=== PATIENT | female | born 1940 | race Caucasian/White ===

== ENCOUNTER 2016-05-09 12:20 | Inpatient (IN) ==
[2016-05-09] MEDS ORDERED: *HR* OxyCODONE Immed Rel 5 MG TABLET PO PRN ×2 (13:02→13:31)
[2016-05-09] MEDS ORDERED: Bisacodyl 10 MG RECTAL SUPPOSITORY RC PRN (13:02)
--- NOTE | 2016-05-09 13:16 | Pallative History & Physical ---
Date of Encounter: 05/09/16 Time of Encounter: 13:12 Assessment and Plan (1) Pain Current visit: Yes Status: Acute Doing better with current medications, however he is still uncontrolled. We will continue the MS Contin 15 mg twice a day oxycodone available 5 mg every couple of hours when necessary. The pain after the ambulance ride will give a 1 time 10 mg dose of oxycodone now. A need to increase oxycodone to 10 mg every 2 hours when necessary. Consider increasing MS Contin based on the use of the oxycodone. (2) Constipation Current visit: Yes Status: Acute Last bowel movement was on Sunday maul proximally 4 days ago and this was after a gentle disimpaction. Aching her MiraLAX correctly at home will schedule MiraLAX, we will schedule sennosides with Colace, Dulcolax available as needed. And consider Relistor tomorrow. Qualifiers: Constipation type: drug induced constipation Qualified Code(s): K59.03 - Drug induced constipation (3) Goals of care, counseling/discussion Current visit: Yes Status: Acute She is in for hospice respite care. The going home with hospice or malaise. (4) Bladder cancer metastasized to bone Current visit: Yes Status: Acute This is her hospice diagnosis. We will continue to watch or pain issues. Internal Medicine - H&P: HPI Admitted From: Direct Admit Plans for Post Hospital Care: Hospice - Home (The patient is here for respite care a history of bladder cancer with metastases to the bone well as the lung. She also has a secondary cancer of breast cancer unknown at this time if the metastases are from breast cancer or the bladder cancer. She has had trouble with urinary tract infections on again off again for the last 4 years. And have a notable hematuria approximately a year ago and was diagnosed definitively in December of last year with her cancer with metastases to the bones. During the) History of present illness: Ms. Obrien is a 76 year old female Who presents for respite care 5 days under [facility]. Patient has a diagnosis of bladder cancer with metastases to the bone and possible metastases to the lung or in the workup of the bladder cancer was also found that she had primary breast cancer as well. She did receive radiation therapy for the metastases to the bone but no other therapy was recommended as the patient was already stage IV. Opted for hospice approximately a week ago. He is coming in for respite care at this time. Patient has been having trouble with constipation and had to be disimpacted last Sunday but has not been taking her MiraLAX on a regular basis. She tells me that however when she does take the MiraLAX it is helpful. Also complains of great deal of pain particularly in her pelvis with movement and/or weightbearing when she tries to weight-bear her left side gives out from underneath her altogether. The change in medication to include MS Contin her pain is under much better control, however she still having a great deal of movement of pain with movement he does take Percocet with them for pain. However she has been trying to avoid this as she was worried about getting too much. She does have trouble with constipation she also has constant burning when she urinates however she has no other active at this time. No difficulty swallowing or difficulty with appetite no nausea or vomiting or shortness of breath and no pain elsewhere outside of her abdomen and pelvis. Past Med Surg Social Fam HX - Past Medical History Medical history: hyperlipidemia, other (C2 fracture with chronic gait disturbance and dysesthesia lower extremities urinary retention chronic) - Social History Smoking Status: Never smoker Alcohol use: none Drug use: none - Family History Sister Hx Family Cancer: Yes (2 sisters with cancer one with breast and one with esophageal cancer.) Internal Medicine - H&P: Meds Cephalexin [Keflex] 500 mg PO QID #28 capsule 01/08/16 [Rx] Allergies levofloxacin [From Levaquin] Allergy (Verified 01/08/16 11:56) Swelling of Lip/Tongue/Throat lisinopril Allergy (Verified 01/08/16 11:56) Cough - Constitutional Constitutional ROS PAL: no decreased appetite, no anorexia, no weight loss - EENT Eyes: no discharge, no dry eye, no pain Ears: no ear discharge, no ear pain Ears, nose, mouth, throat: no dysphagia, no epistaxis, no mouth pain, no nasal congestion, no neck pain - Cardiovascular Cardiovascular ROS: no chest pain, no chest pain at rest, no chest pain with activity - Respiratory Respiratory: no cough, no dyspnea, no hemoptysis - Gastrointestinal Gastrointestinal: constipation, no diarrhea, no nausea, no vomiting - Genitourinary Palliative ROS female: dysuria, hematuria (History), urinary frequency, urinary incontinence, urinary urgency, no urinary hesitancy - Musculoskeletal Musculoskeletal ROS IM: arthralgias, back pain - Integumentary ROS Integumentary: no skin ulcer, no sores - Neurological Neurological ROS: no behavioral changes, no burning sensations, no disequilibrium, no dizziness, no headache(s), no lack of coordination - Psychiatric Psychiatric general PM: no change in appetite, no confusion, no homicidal ideation - Endocrine Endocrine IM: other (No diabetes or thyroid problems.) Palliative Care-Exam - Constitutional General appearance: Present: no acute distress - Head Head Exam: Present: atraumatic, normal inspection - Eye Eye exam: Present: normal appearance, PERRL - ENT ENT exam: Present: mucous membranes moist - Neck Neck exam: Present: normal inspection - Respiratory Respiratory exam: Present: CTAB - Cardiovascular Cardiovascular exam: Present: RRR - GI/Abdominal Exam GI/Abdominal exam: Present: distended, normal bowel sounds, soft. Absent: tenderness - Rectal Rectal exam: Present: fecal impaction (Recent) - Extremities Exam Extremities exam: Present: normal inspection (Light), pedal edema. Absent: tenderness - Neurological Exam Neurological exam: Present: alert, CN II-XII intact, oriented X3 - Psychiatric Psychiatric exam: Present: normal affect, normal mood. Absent: agitated, anxious - Skin Skin exam: Present: dry, warm Palliative Quality Palliative Quality: Screen for Code Status: Yes, Screen for Goals of Care: Yes, Screen for Pain: Yes, If Pain Regimen Started, Initiate Bowel Regimen: Yes, Screen for Nausea/Vomitting: Yes Code Status: 05/09/16 13:02 Resuscitation Status: Active [RES] Stat Resuscitation Status: DNR-Comfort Care Comment:
[2016-05-09] MEDS ORDERED: *HR* OxyCODONE Immed Rel 5 MG TABLET PO ONE (13:29)
[2016-05-09] MEDS: *HR* OxyCODONE Immed Rel 5 MG TABLET PO PRN ×3 (15:55→22:08)
[2016-05-09] MEDS: *HR* Morphine Sulfate SR (12 HR) 15 MG TABLET.ER PO SCH (17:26)
[2016-05-09] MEDS: Sennosides/Docusate Sodium TABLET PO SCH (22:08)
[2016-05-09] MEDS: Acetaminophen 325 MG TABLET PO PRN (22:08)
[2016-05-10] MEDS: *HR* OxyCODONE Immed Rel 5 MG TABLET PO PRN ×3 (00:39→13:28)
[2016-05-10] MEDS: *HR* Morphine Sulfate SR (12 HR) 15 MG TABLET.ER PO SCH ×4 (05:04→17:58)
[2016-05-10] MEDS ORDERED: Methylnaltrexone 12 MG/0.6 ML SYRINGE SQ ONE (07:16)
[2016-05-10] MEDS: Sennosides/Docusate Sodium TABLET PO SCH ×2 (09:15→20:30)
[2016-05-10] MEDS: Ondansetron ODT 4 MG TAB.RAPDIS SL PRN (09:25)
[2016-05-10] MEDS: Acetaminophen 325 MG TABLET PO PRN (09:29)
[2016-05-10] MEDS: *HR* LORazepam 0.5 MG TABLET PO PRN (09:33)
--- NOTE | 2016-05-10 09:34 | Palliative - Consult Note ---
Date of Encounter: 05/10/16 Time of Encounter: 09:00 - Assessment and Plan (1) Pain Current Visit: Yes Status: Acute Assessment and plan: Patient reports pain to pelvis with voiding. Reports central to abdomen, rates 5 /10 with a sharp stab but relieved with voiding. MS contin scheduled increased and will monitor effects. Patient also with roxonol for BTP 10mg every hr. Requested 3 doses in past 24 hrs. Will continue to monitor. (2) Fever and chills Current Visit: Yes Status: Acute Assessment and plan: Patient reports feeling chilled and achy. Last pm temp up to 103.1. This AM 99.1. Tylenol given for comfort, cold washcloth applied to forehead. Will monitor. (3) Constipation Current Visit: Yes Status: Acute Assessment and plan: Patient given Miralax yesterday with no BM. Will add Relistor. Patient denies having no BM for 5 days. Also receiving Senna and Dulcolox. Will monitor effects. Qualifiers: Constipation type: drug induced constipation Qualified Code(s): K59.03 - Drug induced constipation (4) Goals of care, counseling/discussion Current Visit: Yes Status: Acute Assessment and plan: Patient admitted for respite 5 day stay for family rest. Plan is to DC to home with hospice care at [facility]. (5) Bladder cancer metastasized to bone Current Visit: Yes Status: Acute Palliative-CN HPI - Data of Consult Patient: new to practice Consult date: 05/10/16 Requesting Physician: Nicko Hughes MD - Consult Narrative Palliative Care/Comfort Measures: Palliative care Reason for consult: Symptom management History of present illness: Ms. Obrien is a 76 year old female, admitted for respite stay. Patient currently resides at home in the care of her family. She has a history of bladder cancer with metastases to the bone and lung. She also has a secondary cancer of the breast. Patient has a history of multiple UTI's over the course of the past 4 years. Patient currently suffers from urinary urgency and wears attends and voids frequently one her own. She currently reports feeling warm all over with a temperature of 99.5. It is noted that her fever reached 103.1 last pm and was given tylenol. This PC consult is for symptom management. CC: Nicko Hughes MD Past Med Surg Social Fam HX - Past Medical History Source: patient, old records reviewed Medical history: cancer, hyperlipidemia, other Psychiatric history: no psych history - Past Surgical History Surgical History: cataract, cholecystectomy - Social History Smoking Status: Never smoker Smokeless Tobacco Status: No Alcohol use: none Drug use: none Occupational status: retired Current living situation: Home, With Family Activity Level: Independent ambulation Recent Out of Country Travel Within the Last 8 Weeks: No Exposure or Possible Exposure to Illness During Travel: No - Family History Sister Hx Family Cancer: Yes (2 sisters with cancer one with breast and one with esophageal cancer.) Medications and Allergies Acetaminophen [Tylenol 650mg SUPP] 650 mg RC Q6H PRN 05/09/16 [History] Bisacodyl [Dulcolax] 10 mg RC DAILY PRN 05/09/16 [History] Docusate Sodium [Stool Softener] 50 mg PO BID 05/09/16 [History] Haloperidol Oral Conc [Haldol] 1 mg PO Q6H PRN 05/09/16 [History] Hyoscyamine SL [Levsin SL] 0.125 mg SL Q4H PRN 05/09/16 [History] LORazepam [Ativan] 0.5 mg PO Q6H PRN 05/09/16 [History] Morphine Sulfate 5 - 20 mg PO Q1H PRN 05/09/16 [History] Morphine Sulfate SR (12 HR) [MS Contin] 15 mg PO Q12HR 05/09/16 [History] Oxybutynin [Ditropan] 5 mg PO BID 05/09/16 [History] Oxycodone HCl/Acetaminophen [Percocet 5-325 mg Tablet] 1 - 2 each PO Q6H PRN [History] Oxygen 2 - 4 l NS AD 05/09/16 [History] Phenazopyridine HCl [Pyridium] 200 mg PO TIDAC PRN 05/09/16 [History] Polyethylene Glycol 3350 [MiraLAX] 17 gm PO DAILY PRN 05/09/16 [History] Prochlorperazine Maleate [Compazine] 10 mg PO Q6HR PRN 05/09/16 [History] Allergies levofloxacin [From Levaquin] Allergy (Verified 01/08/16 11:56) Swelling of Lip/Tongue/Throat lisinopril Allergy (Verified 01/08/16 11:56) Cough All systems: reviewed and no additional remarkable complaints except as stated ( chilling, warm all over and pelvic pain with urination) - Constitutional Constitutional ROS PAL: chills - Gastrointestinal Gastrointestinal: constipation - Genitourinary Palliative ROS female: pelvic pain, urinary frequency, urinary urgency - Musculoskeletal Musculoskeletal ROS IM: muscle weakness - Neurological Neurological ROS: weakness Palliative Care-Exam - Constitutional Vitals: Temp Pulse Resp BP Pulse Ox 103.0 F H 101 16 109/71 93 L 05/09/16 22:00 05/09/16 20:00 05/09/16 20:00 05/09/16 20:00 05/09/16 20:00 General appearance: Present: febrile (99.1) - Head Head Exam: Present: atraumatic, normal inspection, normocephalic - Eye Eye exam: Present: EOMI, PERRL Pupils: Present: PERRL - ENT ENT exam: Present: mucous membranes moist - Neck Neck exam: Present: full ROM - Respiratory Respiratory exam: Present: CTAB - Cardiovascular Cardiovascular exam: Present: RRR, +S1, +S2 - Expanded Cardiovascular Exam Peripheral pulses: 1+: Femoral (L) PM, Femoral (R) PM, Posterior Tibialis (L), Posterior Tibialis (R), 2+: Carotid (L) PM, Carotid (R) PM, Radial (L), Radial ( R), Dorsalis Pedis (L) PM, Dorsalis Pedis (R) PM - GI/Abdominal Exam GI/Abdominal exam: Present: normal bowel sounds, soft, tenderness (with palpation) - Rectal Rectal exam: Present: normal inspection - Extremities Exam Extremities exam: Present: full ROM - Expanded Upper Extremities Exam Elbow exam: Present: full ROM Hand wrist exam: Present: full ROM - Expanded Lower Extremities Exam Hip exam: Present: full ROM - Neurological Exam Neurological exam: Present: alert, CN II-XII intact, oriented X3 - Psychiatric Psychiatric exam: Present: normal mood - Skin Skin exam: Present: pallor, warm Palliative Quality Palliative Quality: Screen for Code Status: Yes, Screen for Goals of Care: Yes, Screen for Pain: Yes, If Pain Regimen Started, Initiate Bowel Regimen: Yes, Screen for Nausea/Vomitting: Yes Code Status: 05/09/16 13:02 Resuscitation Status: Active [RES] Stat Comment: Resuscitation Status: DNR-Comfort Care
[2016-05-11] MEDS: Acetaminophen 325 MG TABLET PO PRN ×2 (00:20→10:50)
[2016-05-11] MEDS: *HR* Morphine Sulfate SR (12 HR) 15 MG TABLET.ER PO SCH ×3 (01:29→15:30)
[2016-05-11] MEDS: *HR* OxyCODONE Immed Rel 5 MG TABLET PO PRN ×4 (06:52→22:29)
[2016-05-11] MEDS: *HR* LORazepam 0.5 MG TABLET PO PRN (08:31)
[2016-05-11] MEDS: Sennosides/Docusate Sodium TABLET PO SCH ×2 (08:31→19:53)
--- NOTE | 2016-05-11 11:15 | Palliative Progress Note ---
Date of Encounter: 05/11/16 Time of Encounter: 08:00 - Assessment and plan (1) Pain Current Visit: Yes Status: Acute Assessment and plan: Doing better with current medications, continue current medications and adding Decadron today.. (2) Constipation Current Visit: Yes Status: Acute Assessment and plan: Last bowel movement yesterday. Continue current bowel regimen. Qualifiers: Constipation type: drug induced constipation Qualified Code(s): K59.03 - Drug induced constipation (3) Goals of care, counseling/discussion Current Visit: Yes Status: Acute Assessment and plan: She is in for hospice respite care. Plan for discharge on Sunday. (4) Bladder cancer metastasized to bone Current Visit: Yes Status: Acute Assessment and plan: This is her hospice diagnosis. We will continue to watch or pain issues. - Time Spent With Patient Total time spent is greater than 50% in coordination of care (as documented) at patient's floor/unit and/or counseling patient: - Subjective Interval history: Pain medications seem to be working, however the patient did awaken this morning and states she was still having pain. Plan increase the long-lasting morphine 3 times a day we will plan on adding and Decadron today. - Constitutional General appearance: Present: no acute distress - Head Head exam: Present: atraumatic, normal inspection - Eye Eye exam: Present: normal appearance - ENT ENT exam: Present: mucous membranes moist - Respiratory Respiratory exam: Present: CTAB - Cardiovascular Cardiovascular exam: Present: RRR - GI/Abdominal GI/Abdominal exam: Present: normal bowel sounds, soft. Absent: tenderness - Extremities Exam Extremities exam: Present: normal inspection. Absent: tenderness - Neurological Exam Neurological exam: Present: alert, oriented X3 - Psychiatric Psychiatric exam: Present: normal affect, normal mood. Absent: agitated, anxious - Skin Skin exam: Present: dry, warm Palliative Quality Palliative Quality: Screen for Code Status: Yes, Screen for Goals of Care: Yes, Screen for Pain: Yes, If Pain Regimen Started, Initiate Bowel Regimen: Yes, Screen for Nausea/Vomitting: Yes Code Status: 05/09/16 13:02 Resuscitation Status: Active [RES] Stat Comment: Resuscitation Status: DNR-Comfort Care Consult Discharge Plan - Plan Referrals: Carlos Preston MD [Primary Care Provider] -
[2016-05-12] MEDS: *HR* Morphine Sulfate SR (12 HR) 15 MG TABLET.ER PO SCH ×4 (00:41→21:27)
[2016-05-12] MEDS: *HR* OxyCODONE Immed Rel 5 MG TABLET PO PRN ×5 (02:04→12:30)
[2016-05-12] MEDS: Ondansetron ODT 4 MG TAB.RAPDIS SL PRN ×2 (04:29→09:26)
[2016-05-12] MEDS: *HR* LORazepam 0.5 MG TABLET PO PRN (09:26)
[2016-05-12] MEDS: Sennosides/Docusate Sodium TABLET PO SCH ×2 (09:26→21:28)
--- NOTE | 2016-05-12 09:39 | Palliative Progress Note ---
Date of Encounter: 05/12/16 Time of Encounter: 08:55 - Assessment and plan (1) Pain Current Visit: Yes Status: Acute Assessment and plan: Doing better with current medications, continue current medications no changes today (2) Constipation Current Visit: Yes Status: Acute Assessment and plan: Last bowel movement yesterday. Continue current bowel regimen. will schedule the supp Qualifiers: Constipation type: drug induced constipation Qualified Code(s): K59.03 - Drug induced constipation (3) Goals of care, counseling/discussion Current Visit: Yes Status: Acute Assessment and plan: She is in for hospice respite care. Plan for discharge on Sunday. will send out on decadron 4mg bid and continue the burger Scripts have been written faxed to pharmacy and placed in the discharge for her. (4) Bladder cancer metastasized to bone Current Visit: Yes Status: Acute Assessment and plan: This is her hospice diagnosis. We will continue to watch or pain issues. pain better today will keep pain meds where they are, - Time Spent With Patient Total time spent is greater than 50% in coordination of care (as documented) at patient's floor/unit and/or counseling patient: - Subjective Interval history: Pain medications seem to be working,pain is much better catheter seems to be helping but had nausea last pm and is still having some this am. - Constitutional General appearance: Present: mild distress (Secondary to nausea) - Head Head exam: Present: atraumatic, normal inspection, normocephalic - Eye Eye exam: Present: normal appearance - ENT ENT exam: Present: mucous membranes moist - Neck Neck exam: Present: normal inspection - Respiratory Respiratory exam: Present: CTAB - Cardiovascular Cardiovascular exam: Present: RRR - GI/Abdominal GI/Abdominal exam: Present: normal bowel sounds, soft. Absent: tenderness - Extremities Exam Extremities exam: Present: normal inspection. Absent: pedal edema, tenderness - Back Exam Back exam: Present: normal inspection - Neurological Exam Neurological exam: Present: alert, oriented X3 - Psychiatric Psychiatric exam: Present: normal affect, normal mood. Absent: agitated, anxious - Skin Skin exam: Present: dry, warm Palliative Quality Palliative Quality: Screen for Code Status: Yes, Screen for Goals of Care: Yes, Screen for Pain: Yes, If Pain Regimen Started, Initiate Bowel Regimen: Yes, Screen for Nausea/Vomitting: Yes Code Status: 05/09/16 13:02 Resuscitation Status: Active [RES] Stat Comment: Resuscitation Status: DNR-Comfort Care Consult Discharge Plan - Plan Referrals: Carlos Preston MD [Primary Care Provider] - Prescriptions: Morphine Sulfate SR (12 HR) [MS Contin] 15 mg PO Q8HR #15 tablet.er Dexamethasone [Decadron] 4 mg PO BID #10 tab
[2016-05-12] MEDS ORDERED: Ondansetron ODT 4 MG TAB.RAPDIS SL PRN (14:34)
[2016-05-12] MEDS: Bisacodyl 10 MG RECTAL SUPPOSITORY RC SCH (21:29)
[2016-05-13] MEDS: *HR* OxyCODONE Immed Rel 5 MG TABLET PO PRN ×7 (01:29→23:15)
[2016-05-13] MEDS: *HR* Morphine Sulfate SR (12 HR) 15 MG TABLET.ER PO SCH ×2 (08:59→21:23)
[2016-05-13] MEDS: Sennosides/Docusate Sodium TABLET PO SCH ×2 (09:00→21:23)
--- NOTE | 2016-05-13 09:02 | Palliative Progress Note ---
Date of Encounter: 05/13/16 Time of Encounter: 08:15 - Assessment and plan (1) Pain Current Visit: No Status: Acute Assessment and plan: Patient current regimen effective. Will continue to monitor. (2) Constipation Current Visit: No Status: Acute Assessment and plan: Bowels moving and on bowel regimen of miralax, dulcolox and senna. Qualifiers: Constipation type: drug induced constipation Qualified Code(s): K59.03 - Drug induced constipation (3) Goals of care, counseling/discussion Current Visit: Yes Status: Acute Assessment and plan: Patient here for 5 day respite stay. Will plan for DC home on 05/14/16 at 1400. (4) Bladder cancer metastasized to bone Current Visit: Yes Status: Acute - Time Spent With Patient Total time spent is greater than 50% in coordination of care (as documented) at patient's floor/unit and/or counseling patient: less than 15 minutes - Subjective Interval history: Sitting up in bed. Denies pain or discomfort. Reports that she had indigestion last pm. Reports belching but no gas. - Constitutional General appearance: Present: cooperative, thin - Head Head exam: Present: atraumatic, normal inspection, normocephalic - Eye Eye exam: Present: PERRL - ENT ENT exam: Present: mucous membranes moist - Neck Neck exam: Present: full ROM - Respiratory Respiratory exam: Present: CTAB - Cardiovascular Cardiovascular exam: Present: RRR, +S1, +S2 - GI/Abdominal GI/Abdominal exam: Present: normal bowel sounds, soft, tenderness - Rectal Rectal exam: Present: deferred - Additional comments: Hugo cath intact and draining clear yellow urine. - Extremities Exam Extremities exam: Present: tenderness - Expanded Upper Extremity Exam Shoulder exam: Present: full ROM Upper Arm exam: Present: full ROM - Back Exam Back exam: Present: full ROM - Neurological Exam Neurological exam: Present: alert, CN II-XII intact, oriented X3 - Psychiatric Psychiatric exam: Present: normal affect - Skin Skin exam: Present: pallor Palliative Quality Palliative Quality: Screen for Code Status: Yes, Screen for Goals of Care: Yes, Screen for Pain: Yes, If Pain Regimen Started, Initiate Bowel Regimen: Yes, Screen for Nausea/Vomitting: Yes Code Status: 05/09/16 13:02 Resuscitation Status: Active [RES] Stat Comment: Resuscitation Status: DNR-Comfort Care Consult Discharge Plan - Plan Referrals: Carlos Preston MD [Primary Care Provider] - Prescriptions: Morphine Sulfate SR (12 HR) [MS Contin] 15 mg PO Q8HR #15 tablet.er Dexamethasone [Decadron] 4 mg PO BID #10 tab
[2016-05-13] MEDS ORDERED: Mag Hydrox/Al Hydrox/Simeth 30 ML UDC PO PRN (09:20)
[2016-05-13] MEDS: Bisacodyl 10 MG RECTAL SUPPOSITORY RC SCH (21:23)
[2016-05-13] MEDS: *HR* LORazepam 0.5 MG TABLET PO PRN (23:16)
[2016-05-14] MEDS: *HR* OxyCODONE Immed Rel 5 MG TABLET PO PRN ×4 (00:58→14:16)
[2016-05-14] MEDS: *HR* Morphine Sulfate SR (12 HR) 15 MG TABLET.ER PO SCH (07:53)
[2016-05-14] MEDS: Sennosides/Docusate Sodium TABLET PO SCH (07:53)
[2016-05-14 08:02] VITALS: BP 131/71
--- NOTE | 2016-05-14 09:38 | Discharge Summary ---
Date of Encounter: 05/14/16 Time of Encounter: 09:30 - Discharge Diagnosis (1) Bladder cancer metastasized to bone Priority: Primary Status: Acute Comments: Patient admitted for Respite stay. (2) Pain Priority: Secondary Status: Chronic Comments: Pain control managed with starting decradon and increasing scheduled MS contin. (3) Constipation Priority: Secondary Status: Chronic Comments: Education provided to patient and family to take Miralax daily to prevent constipation. Qualifiers: Constipation type: drug induced constipation Qualified Code(s): K59.03 - Drug induced constipation (4) Goals of care, counseling/discussion Priority: Secondary Status: Acute Comments: Patient [place] DNR CC - Comfort Care form completed and placed in medical record for transport via ambulance. - Discharge Medications Prescriptions: Morphine Sulfate SR (12 HR) [MS Contin] 15 mg PO Q8HR #15 tablet.er Dexamethasone [Decadron] 4 mg PO TID #16 tablet Lactose-Reduced Food [Ensure Plus] 1 bottle PO TID #30 can Home Medications: Acetaminophen [Tylenol 650mg SUPP] 650 mg RC Q6H PRN 05/09/16 [History] Bisacodyl [Dulcolax] 10 mg RC DAILY PRN 05/09/16 [History] Docusate Sodium [Stool Softener] 50 mg PO BID 05/09/16 [History] Haloperidol Oral Conc [Haldol] 1 mg PO Q6H PRN 05/09/16 [History] Hyoscyamine SL [Levsin Sl] 0.125 mg SL Q4H PRN 05/09/16 [History] LORazepam [Ativan] 0.5 mg PO Q6H PRN 05/09/16 [History] Morphine Sulfate 5 - 20 mg PO Q1H PRN 05/09/16 [History] Oxycodone HCl/Acetaminophen [Percocet 5-325 mg Tablet] 1 - 2 each PO Q6H PRN [History] Oxygen 2 - 4 l NS AD 05/09/16 [History] Phenazopyridine HCl [Pyridium] 200 mg PO TIDAC PRN 05/09/16 [History] Polyethylene Glycol 3350 [MiraLAX] 17 gm PO DAILY PRN 05/09/16 [History] Prochlorperazine Maleate [Compazine] 10 mg PO Q6HR PRN 05/09/16 [History] Acetaminophen [Tylenol] 650 mg PO Q6HR PRN #0 tablet 05/14/16 [Rx] Dexamethasone [Decadron] 4 mg PO TID #16 tablet 05/14/16 [Rx] LORazepam [Ativan] 0.5 mg PO Q4HR PRN #0 tablet 05/14/16 [Rx] Lactose-Reduced Food [Ensure Plus] 1 bottle PO TID #30 can 05/14/16 [Rx] Mag Hydrox/Al Hydrox/Simeth [Maalox] 15 ml PO Q6HR PRN #0 udc 05/14/16 [Rx] Morphine Sulfate SR (12 HR) [MS Contin] 15 mg PO Q8HR #15 tablet.er 05/14/16 [Rx ] Oxybutynin [Ditropan] 5 mg PO BID tablet 05/14/16 [Rx] Sennosides/Docusate Sodium [Senna Plus] 2 each PO BID tablet 05/14/16 [Rx] Allergies/Adverse Reactions: Allergies levofloxacin [From Levaquin] Allergy (Verified 01/08/16 11:56) Swelling of Lip/Tongue/Throat lisinopril Allergy (Verified 01/08/16 11:56) Cough Procedures and tests throughout hospitalization: None Labs on day of discharge: None - Impressions none ordered - Additional Comments NO labs or diagnostics were completed. Patient is respite stay. Internal Medicine - DS: Prov Date of admission: 05/09/16 12:21 Primary care physician: Carlos Preston MD Admitting clinician: Nicko Hughes Attending physician on admission: Nicko Hughes Consults: 05/09/16 13:02 Consult to Palliative Care [CONS] Routine Comment: Consulting Provider: [facility] [place] Attending physician on discharge: Nicko Hughes Discharging clinician: Mitzi Moncada Anticipated date of discharge: 05/14/16 - Patient Status Disposition: Hospice - Home Condition: Good Functional capacity at discharge: bed bound Overall status at discharge: patient is back to baseline - Discharge Instructions Instructions: Dexamethasone (By mouth), Morphine, Slow Release (By mouth) Follow Up With: Carlos Preston MD [Primary Care Provider] - ([facility] following pt. No appointment needed.) - Diet and Activity Activity: resume usual activities as tolerated Diet: advance to your usual diet - Hospital Course Hospital course: Ms. Obrien is a 76 year old female admitted for a 5-day respite stay and pain control. Decradon was added to patients pain regimen and the patient has a burger catheter inserted to facilitate urination due to pain of lower abdomen and bladder. The patient has requested to have the burger catheter removed prior to DC. Patient given daily stool softners during stay with last BM 05/10/16. Time spent discussing smoking cessation with patient: 3 to 10 minutes (none smoker) - Time Spent with Patient Total time spent providing and/or coordinating discharge services: Less than 30 minutes Specific discharge activities: Phone call to daughter Sarah. Reviewed medications and she reports that she will arrive to hospital prior to DC. Internal Medicine - DS: Exam - Constitutional Vitals: Vital Signs Temp Pulse Resp BP Pulse Ox 05/14/16 07:58 98.3 F 61 17 131/71 94 L 05/14/16 07:33 97.7 F 63 17 116/71 96 05/13/16 21:28 93 L 05/13/16 20:18 98.1 F 60 16 114/57 93 L Intake and Output 05/13/16 05/14/16 05/14/16 23:59 07:59 15:59 Intake Total 1120 / 1120 400 / 400 360 / 360 Output Total 650 / 650 1000 / 1000 1000 / 1000 Balance 470 / 470 -600 / -600 -640 / -640 Intake: Oral 1120 / 1120 400 / 400 360 / 360 Output: Urine 1000 / 1000 Catheter 650 / 650 1000 / 1000 Other: Meal Dinner Breakfast Percent of Meal Consumed 60% 80% Weight 60 kg - Head Head exam: Present: atraumatic, normal inspection, normocephalic - Eye Eye exam: Present: PERRL Pupils: Present: PERRL - ENT ENT exam: Present: mucous membranes moist - Neck Neck exam: Present: full ROM - Respiratory Respiratory exam: Present: CTAB - Cardiovascular Cardiovascular exam: Present: RRR, +S1, +S2 - GI/Abdominal GI/Abdominal exam: Present: soft - Rectal Rectal exam: Present: deferred - Additional comments: Burger DC'd per patient request. Will provide Attends for incontinence. - Extremities Exam Extremities exam: Present: full ROM - Back Exam Back exam: Present: full ROM - Neurological Exam Neurological exam: Present: alert, oriented X3 - Psychiatric Psychiatric exam: Present: normal affect - Skin Skin exam: Present: pallor, warm - Stroke Reason for No Antithrombin at DC: Medical contraindication - VTE Deep Vein Thrombosis/Pulmonary Embolism Present on Admission: No - AMI Reason for No Aspirin at Discharge: Drug treatment not indicated - Attending Attestation Patient assessed and evaluated by me and cleared to return home after Respite stay.
--- NOTE | 2016-05-14 13:53 | Event Note ---
Date of Encounter: 05/14/16 Time of Encounter: 13:30 Patients daughters arrived. Patient had requested burger catheter be removed this morning for comfort. Order given to DC burger cath as per patients wishes. Patient no longer desired to have the catheter in place. Daughters questioned decision to DC Burger as they were told per Dr. Hughes that patient would DC with catheter. Patient voids per attends and reports to the daughters that she did not desire a catheter to be reinserted. Daughters unhappy with patients decision and I will honor patients request to not have catheter reinserted as the patient is alert and oriented and able to clearly state her desires. Education on DC medications given. Daughters verbalized understanding.
== END 2016-05-14 14:26 | disposition hospice, home (50) | DRG 687 ==
LOC: 2ANU 12:21
PROVIDERS: ADMIT Family Medicine Hospice and Palliative Medicine; ATTEND Family Medicine Hospice and Palliative Medicine